=== PATIENT | female | born 1985 | race African-American/Black ===

== ENCOUNTER 2024-02-29 18:46 | Emergency (ER) | payer OTHER, SELFPAY ==
[2024-02-29 18:58] VITALS: BP 119/83; PULSE 78; RESP 16; TEMP 36.6; O2SAT 100
[2024-02-29 21:14] VITALS: BP 160/94; PULSE 76; RESP 16; TEMP 36.4; O2SAT 100
--- NOTE | 2024-02-29 21:14 | ED.EXTPRO ---
HPI - Extremity Problem General Chief complaint: Extremity Problem,Nontraumatic Stated complaint: R CALF KNOT XTD Time Seen by Provider: 02/29/24 21:03 Source: patient Mode of arrival: ambulatory Limitations: no limitations History of Present Illness HPI Narrative: Patient presents with concern for a knot she noticed in her right calf today. She describes it as a lump. No injury or recent travel. She is not on control. No history of DVT or PE. She denies any blunt trauma, fall/injury or sensing anything pop. Related Data Allergies Allergy/AdvReac Type Severity Reaction Status Date / Time No Known Allergies Allergy Verified 02/29/24 21:36 [facility] Social History Social History Tobacco type: e-cigarettes/vaping Exam Narrative: GENERAL: Well-appearing, well-nourished, and in no acute distress. HEAD: Normocephalic, atraumatic. EYES: Non injected, non icteric ENT: Nares clear, no rhinorrhea or epistaxis. NECK: Supple. CHEST: Speaking in full sentences. No respiratory distress. HEART: Regular rate and rhythm. . ABDOMEN: Soft, nondistended. EXTREMITIES: Normal range of motion. No lower extremity edema. There is a small palpable subcutaneous nodule along the proximal aspect of her right calf. SKIN: Warm, dry, no rash. No overlying skin changes. No induration. Not ecchymotic. Not draining. NEURO: No focal deficits. Alert and oriented x3. PSYCH: Normal mood and affect. Course Vital Signs Vital signs: Vital Signs Temperature 98 F 02/29/24 18:58 Pulse Rate 78 02/29/24 18:58 Respiratory Rate 16 02/29/24 18:58 Blood Pressure 119/83 02/29/24 18:58 Pulse Oximetry 100 02/29/24 18:58 Temperature 97.9 F 02/29/24 23:55 Pulse Rate 68 02/29/24 23:55 Respiratory Rate 16 02/29/24 23:55 Blood Pressure 154/94 H 02/29/24 23:55 Pulse Oximetry 98 02/29/24 23:55 MDM - Extremity (Nontraumatic) MDM Narrative Medical decision making narrative: Patient presents with a knot in her right leg. In the emergency department they are afebrile with vital signs within normal limits. There is a palpable nodule/mass felt along proximal area of the calf, higher than would be suggested by soleus/gastrocnemus injury and or hematoma. No overlying skin changes concerning for cellulitis. POCUS performed which does note that the muscle layer looks slightly different in this area but otherwise without any overlying cobblestoning suggestive of cellulitis and without evidence of abscess. Very mildly elevated CPK but not enough to raise concern for rhabdomyolysis and compartments are soft. D-dimer normal; will not proceed with ultrasound imaging. Workup otherwise unremarkable without clearly identifiable etiology. Advised follow-up with primary care physician. Discharged stable condition and provided prescriptions for acetaminophen ibuprofen. Differential Diagnosis Differential diagnosis: Likely superficial thrombophlebitis, deep vein thrombosis of lower extremity and other (Lipoma/fatty deposit, soft tissue tumors, rheumatoid nodules, inflammation, nodular vasculitis,) Lab Data Attestation: I reviewed the patient's lab results. Lab results narrative: Normocytic anemia with no prior for comparison 02/29/24 22:42 02/29/24 22:42 Labs: Lab Results 02/29/24 Range/Units 22:42 WBC 5.2 (4.5-10.0) K/mm3 RBC 3.50 L (4.2-5.4) M/mm3 Hgb 10.3 L (12.0-15.0) g/dL Hct 31.4 L (37.0-47.0) % MCV 89.7 (80-100) fl MCH 29.4 (26-34) pg MCHC 32.8 (32-36) g/dl RDW 12.9 (11.5-14.5) % Plt Count 163 (150-375) k/mm3 MPV 11.5 H (7.4-10.4) fl Immature Gran % (Auto) 0.4 (0-0.5) % Neut % (Auto) 46.2 (45.5-73.1) % Lymph % (Auto) 41.0 (18.3-44.2) % [place] % (Auto) 8.5 (2.6-8.5) % Eos % (Auto) 3.1 (0-4.4) % Baso % (Auto) 0.8 (0.2-1.2) % Lymph # (Auto) 2.12 (0.9-3.2) K/mm3 [place] # (Auto) 0.4 (0.1-0.6) K/mm3 Eos # (Auto) 0.2 (0-0.3) K/mm3 Baso # (Auto) 0.0 (0.0-0.1) K/mm3 Abs Immat Gran (auto) 0.02 (0.00-0.031) K/mm3 Absolute Neuts (auto) 2.4 (1.3-6.7) K/mm3 Absolute Nucleated RBC 0.000 (0.0-0.012) K/mm3 Nucleated RBC % 0.0 (0.0-0.2) % PT 13.7 (11.1-14.7) Seconds INR 1.0 APTT 28.4 (22.3-36.8) Seconds D-Dimer < 0.27 (<0.48) ug/mL Sodium 139 (137-145) mmol/L Potassium 4.1 (3.4-5.0) mmol/L Chloride 103 (98-107) mmol/L Carbon Dioxide 28 (22-30) mmol/L Anion Gap 8 (4-12) mmol/L BUN 13 (7-17) mg/dL Creatinine 0.70 (0.7-1.0) mg/dL Estim Creat Clear Calc 116 ml/min Estimated GFR > 60 (59 - ) Glucose 114 H (65-110) mg/dL Calcium 9.2 (8.4-10.2) mg/dL Magnesium 2.0 (1.6-2.3) mg/dL Total Creatine Kinase 187 H (30-135) U/L Discharge Plan Discharge Clinical Impression: Subcutaneous nodule of right lower leg, Normocytic anemia Patient Disposition: Home, Self-Care Condition: Stable Instructions: Antibiotic Form, Anemia (ED), Soft Tissue Mass (ED) Additional Instructions: Unclear cause of the knot in your calf but your work up was otherwise unremarkable (i.e. without concerns for blood clot, increased muscle breakdown, infection/abscess, etc.). Follow-up with your primary care physician. Return to the emergency department with any new or worsening symptoms. Acetaminophen/Tylenol (maximum 4000mg/day) is safe to take in conjunction with NSAIDs such as Motrin/ibuprofen. Prescriptions: New ibuprofen 600 mg tablet 600 mg PO TID PRN (Reason: pain) Qty: 20 0RF acetaminophen 500 mg capsule 1,000 mg PO Q6H PRN (Reason: pain) Qty: 20 0RF acetaminophen 650 mg tablet extended release 650 mg PO Q8H PRN (Reason: pain) Qty: 20 0RF ibuprofen 600 mg tablet 600 mg PO TID PRN (Reason: pain) Qty: 20 0RF Follow-up/Referrals: Jaime,Jena Nix MD [Primary Care Provider] - Stand Alone Forms: Work/School Release IP Time of Disposition: 23:38
[2024-02-29] MEDS: Please add drug allergy info to patient profile. 1 EACH XX (21:39)
[2024-02-29] MEDS: ACETAMINOPHEN 500 MG TABLET 1000 MG PO (21:39)
[2024-02-29 22:50] LABS: Basophils Percent Auto 0.8 % (0.2-1.2); Eosinophils Absolute Auto 0.2 K/mm3 (0-0.3); Eosinophils Percent Auto 3.1 % (0-4.4); Hematocrit 31.4 % (37.0-47.0); Hemoglobin 10.3 g/dL (12.0-15.0); Immature Granulocyte Absolute 0.02 K/mm3 (0.00-0.031); Immature Granulocyte Percent A 0.4 % (0-0.5); Lymphocytes Absolute Auto 2.12 K/mm3 (0.9-3.2); Mean Corpuscular HGB Conc 32.8 g/dl (32-36); Mean Corpuscular Hemoglobin 29.4 pg (26-34); Mean Corpuscular Volume 89.7 fl (80-100); Mean Platelet Volume 11.5 fl (7.4-10.4); Monocytes Absolute Auto 0.4 K/mm3 (0.1-0.6); Monocytes Percent Auto 8.5 % (2.6-8.5); Neutrophils Absolute Auto 2.4 K/mm3 (1.3-6.7); Neutrophils Percent Auto 46.2 % (45.5-73.1); Platelet Count Result 163 k/mm3 (150-375); Red Cell Distribution Width 12.9 % (11.5-14.5); White Blood Count 5.2 K/mm3 (4.5-10.0)
[2024-02-29 23:02] LABS: Anion Gap 8 mmol/L (4-12); Blood Urea Nitrogen 13 mg/dL (7-17); Calcium 9.2 mg/dL (8.4-10.2); Carbon Dioxide 28 mmol/L (22-30); Chloride 103 mmol/L (98-107); Creatine Kinase 187 U/L (30-135); Estimated CRCL calculation 116 ml/min; Estimated Glomerular Filt Rate > 60; Glucose 114 mg/dL (65-110); Potassium 4.1 mmol/L (3.4-5.0); Prothrombin Time 13.7 Seconds (11.1-14.7); Sodium 139 mmol/L (137-145)
[2024-02-29 23:03] LABS: Partial Thromboplastin Time 28.4 Seconds (22.3-36.8)
[2024-02-29 23:17] LABS: D Dimer < 0.27 ug/mL (<0.48)
[2024-02-29] MEDS: KETOROLAC 30 MG/ML VIAL (*BKC) 15 MG IM (23:48)
[2024-02-29 23:55] VITALS: BP 154/94; PULSE 68; RESP 16; TEMP 36.6; O2SAT 98
== END 2024-02-29 23:56 | disposition home or self-care (01) ==
PROVIDERS: Emergency Provider Student in an Organized Health Care Education/Training Program; PCP Internal Medicine
DX: R22.41 Localized swelling, mass and lump, right lower limb (principal); D64.9 Anemia, unspecified; F17.290 Nicotine dependence, other tobacco product, uncomplicated
CPT/HCPCS: 36415; 80048; 82550; 83735; 85025; 85380; 85610; 85730; 96372; 99283; A9270; J1885